=== PATIENT | female | born 1990 | race Hispanic/Latino ===

== ENCOUNTER 2016-06-06 11:18 | Emergency (ER) | payer OTHER ==
[~2016-06-06] VITALS: Ht 167.6 cm; Wt 72.6 kg
[~2016-06-06 11:18] MED LIST: OMEP20CA12 PO
[2016-06-06 11:47] LABS: BILIRUBIN,URINE NEGATIVE (NEGATIVE); KETONES,URINE NEGATIVE (NEGATIVE); LEUKOCYTE ESTERASE ,URINE 1+ (NEGATIVE); NITRITE,URINE NEGATIVE (NEGATIVE); PH,URINE 8 (5-9); PROTEIN,URINE NEGATIVE (NEGATIVE); UROBILINOGEN,URINE NORMAL (NORMAL)
--- NOTE | 2016-06-06 11:54 | ED Back Pain ---
General Chief Complaint: General Problems/Pain Stated Complaint: BACK PAIN Nursing Triage Note: Patient reports R sided back pain starting yesterday, denies n/v/d. denies injury and urinary symptoms Nursing Sepsis Screen: No Definite Risk Source of Information: Patient (DOES NOT SPEAK [place]), Chronic Disease Manager Exam Limitations: Language Barrier History of Present Illness Time Seen by Provider: 11:44 Initial Comments C/O RIGHT FLANK AND LOWER BACK PAIN SINCE TUESDAY NIGHT 06/04/16 NOTHING WORSENS OR IMPROVES PAIN NO RADIATION OF PAIN NO INJURY NO PARESTHESIAS OR MOTOR DEFICITS NO URINARY SYMPTOMS NO FEVER NO NAUSEA/VOMITING NO ABDOMINAL PAIN NO PRIOR HISTORY OF SIMILAR LMP 05/05/16--HAS IMPLANON/NEXPLANON IN PLACE Allergies and Home Medications Allergies Coded Allergies: No Known Drug Allergies (Unverified , 02/18/16) Home Medications Ketorolac Tromethamine 10 Mg Tablet, 10 MG PO Q6H, #15 Prescribed by: GABRIELA GRIFFIN on 06/06/16 1201 Nitrofurantoin Monohyd/M-Cryst 100 Mg Capsule, 100 MG PO BID, #20 Prescribed by: GABRIELA GRIFFIN on 06/06/16 1201 Constitutional: no symptoms reported Respiratory: no symptoms reported Cardiovascular: no symptoms reported Gastrointestinal: no symptoms reported Genitourinary: no symptoms reported : No LMP: May 05, 2016 Control/STD Prophylaxis: Other (IMPLANON/NEXPLANON) Musculoskeletal: see HPI, back pain Skin: no symptoms reported Psychiatric/Neurological: No Symptoms Reported Past Hbwkljs-Ldgcfp-Umhkyr Hx Patient Social History Alcohol Use: Denies Use Recreational Drug Use: No Smoking Status: Never a Smoker Recent Foreign Travel: No Contact w/Someone Who Travel: No Recent Infectious Disease Expo: No Recent Hopitalizations: No Seasonal Allergies Seasonal Allergies: No Surgeries HX Surgeries: Yes Surgeries: Section Respiratory Hx Respiratory Disorders: No Cardiovascular Hx Cardiac Disorders: No Neurological Hx Neurological Disorders: No Reproductive System : No Hx Reproductive Disorders: No Female Reproductive Disorders: Denies Genitourinary Hx Genitourinary Disorders: No Gastrointestinal Hx Gastrointestinal Disorders: No Musculoskeletal Hx Musculoskeletal Disorders: No Endocrine Hx Endocrine Disorders: No HEENT HX ENT Disorders: No Cancer Hx Cancer: No Psychosocial Hx Psychiatric Problems: No Integumentary HX Skin/Integumentary Disorder: No Blood Transfusions Hx Blood Disorders: No Family Medical History Significant Family History: Heart Disease, Diabetes Physical Exam Vital Signs Vital Sign - Last 12Hours 06/06/16 11:31 Temp 98.2 Pulse 71 Resp 18 B/P (MAP) 124/81 Pulse Ox 98 Capillary Refill : Less Than 3 Seconds General Appearance: WD/WN, Other (LOOKS UNCOMFORTABLE) Neck: Normal Inspection Cardiovascular: Regular Rate, Rhythm, No Edema, No JVD, No Murmur, Normal Peripheral Pulses Respiratory: Normal Breath Sounds, No Accessory Muscle Use, No Respiratory Distress Gastrointestinal: Normal Bowel Sounds, No Organomegaly, No Pulsatile Mass, Non Tender, Soft Back: No Vertebral Tenderness, CVA Tenderness (R), Other (MILD LOWER BACK TENDERNESS AND RIGHT FLANK TENDERNESS) Extremity: Normal Range of Motion Neurologic/Psychiatric: Alert, Oriented x3, No Motor/Sensory Deficits, roller man II- XII Norm as Tested Skin: Normal Color, Warm/Dry, No Rash Progress/Results/Core Measures Results/Orders Lab Results Laboratory Tests Test 06/06/16 11:40 Range/Units Urine Color YELLOW Urine Clarity SLIGHTLY CLOUDY Urine pH 8 5-9 Urine Specific [place] 1.015 L 1.016-1.022 Urine Protein NEGATIVE NEGATIVE Urine Glucose (UA) NEGATIVE NEGATIVE Urine Ketones NEGATIVE NEGATIVE Urine Nitrite NEGATIVE NEGATIVE Urine Bilirubin NEGATIVE NEGATIVE Urine Urobilinogen NORMAL NORMAL MG/DL Urine Leukocyte Esterase 1+ H NEGATIVE Urine RBC (Auto) NEGATIVE NEGATIVE Urine RBC NONE /HPF Urine WBC 0-2 /HPF Urine Squamous Epithelial Cells 5-10 /HPF Urine Crystals NONE /LPF Urine Amorphous Sediment FEW MARYANN PHOSPHATE H /LPF Urine Bacteria FEW H /HPF Urine Casts NONE /LPF Urine Mucus NEGATIVE /LPF Urine Culture Indicated NO My Orders Orders - GABRIELA GRIFFIN DO Ketorolac Injection (Toradol Injection) (06/06/16 11:59) Ceftriaxone Injection (Rocephin Injectio (06/06/16 12:00) Lidocaine 1% Injection (Xylocaine 1% Inj (06/06/16 12:00) Urine Culture (06/06/16 12:02) Medications Given in ED Current Medications Medications Dose Ordered Sig/Korey Route Start Time Stop Time Status Last Admin Dose Admin Ceftriaxone Sodium 1,000 mg ONCE ONCE IM 06/06/16 12:00 06/06/16 12:01 DC 06/06/16 12:14 1,000 MG Lidocaine HCl 2.1 ml ONCE ONCE INJ 06/06/16 12:00 06/06/16 12:01 DC 06/06/16 12:14 2.1 ML Vital Signs/I&O Vital Sign - Last 12Hours 06/06/16 11:31 Temp 98.2 Pulse 71 Resp 18 B/P (MAP) 124/81 Pulse Ox 98 Blood Pressure Mean: 95 Point of Care Testing Urine -Bedside: Negative Departure Impression Impression: Primary Impression: Urinary tract infection Disposition: HOME, SELF-CARE Condition: Stable Departure-Patient Inst. Referrals: NO,LOCAL PHYSICIAN (PCP/Family) Primary Care Physician Patient Instructions: Urinary Tract Infection, Adult (DC) Add. Discharge Instructions: MOIST HEAT TO AREA AT 20 MINUTE INTERVALS ACTIVITIES TOLERATED FOLLOW UP WITH DREdy OF CHOICE IN 2-3 DAYS IF NO BETTER All discharge instructions reviewed with patient and/or family. Voiced understanding. Scripts Ketorolac Tromethamine (Ketorolac Tromethamine) 10 Mg Tablet 10 MG PO Q6H for Pain, #15 TAB Prov: GABRIELA GRIFFIN DO 06/06/16 Nitrofurantoin Monohyd/M-Cryst (Macrobid 100 mg Capsule) 100 Mg Capsule 100 MG PO BID, #20 CAP Prov: GABRIELA GRIFFIN DO 06/06/16 GABRIELA GRIFFIN DO Jun 06, 2016 11:54
[2016-06-06 11:55] LABS: WBC,URINE 0-2 /HPF
[2016-06-06] MEDS ORDERED: KETOROLAC 60 MG/2 ML VIAL IM STA (11:59)
[2016-06-06] MEDS ORDERED: cefTRIAXone 1 GM (ROCEPHIN) VIAL IM ONE (12:00)
[2016-06-06] MEDS ORDERED: LIDOCAINE 1% INJ 20 ML (XYLOCAINE) VIAL INJ ONE (12:00)
[2016-06-06] MEDS ORDERED: NITR-65 PO (12:01)
[2016-06-06] MEDS ORDERED: KETO10TA PO (12:01)
[2016-06-06 12:36] VITALS: BP 132/64
== END 2016-06-06 12:35 | disposition home or self-care (01) ==
LOC: EDUNIT# 11:18 → ER 11:19
DX: N39.0 Urinary tract infection, site not specified (principal); M54.5 Low back pain
CPT/HCPCS: 81000; 84703; 87088; 96372; 99282

== ENCOUNTER 2018-03-07 07:00 | Emergency (ER) | payer OTHER ==
[~2018-03-07] VITALS: Ht 157.5 cm; Wt 83.0 kg
[~2018-03-07 07:00] MED LIST changes: +KETO10TA PO; +NITR-65 PO
--- NOTE | 2018-03-07 07:45 | NUR ---
Pt c/o pain to her neck and back of head adn N/V . No known injury. Pt recently had + test. No PMH, NKDA, no meds. Vitals are 115/70, 70p, 16R, 100%, 98.2.
[2018-03-07] MEDS ORDERED: PROMETHAZINE INJ 25 MG/ML (PHENERGAN) AMP IVP ONE (09:45)
[2018-03-07] MEDS ORDERED: NS IV 1000 ML 1,000 ML IV ONE (09:45)
[2018-03-07] MEDS ORDERED: ACETAMINOPHEN 500 MG TAB (TYLENOL) PO ONE (09:45)
[2018-03-07 09:59] LABS: BASOPHILS % (AUTO) 0 % (0-10); EOSINOPHILS # (AUTO) 0.1 10^3/uL (0.0-0.3); EOSINOPHILS % (AUTO) 1 % (0-10); HEMATOCRIT 39 % (35-52); HEMOGLOBIN 13.1 G/DL (11.5-16.0); LYMPHOCYTES # (AUTO) 2.1 X 10^3 (1.0-4.0); LYMPHOCYTES % (AUTO) 26 % (12-44); MEAN CORPUSCULAR HEMOGLOBIN 31 PG (25-34); MEAN CORPUSCULAR HGB CONC 34 G/DL (32-36); MEAN CORPUSCULAR VOLUME 90 FL (80-99); MEAN PLATELET VOLUME 10.6 FL (7.4-10.4); MONOCYTES # (AUTO) 0.4 X 10^3 (0.0-1.0); MONOCYTES % (AUTO) 5 % (0-12); NEUTROPHILS # (AUTO) 5.4 X 10^3 (1.8-7.8); NEUTROPHILS % (AUTO) 68 % (42-75); PLATELET COUNT 248 10^3/uL (130-400); RED CELL DISTRIBUTION WIDTH 12.2 % (10.0-14.5)
[2018-03-07 10:06] LABS: BILIRUBIN,URINE NEGATIVE (NEGATIVE); CLARITY,URINE CLEAR; COLOR,URINE YELLOW; GLUCOSE, URINE (UA) NEGATIVE (NEGATIVE); KETONES,URINE NEGATIVE (NEGATIVE); LEUKOCYTE ESTERASE ,URINE 3+ (NEGATIVE); NITRITE,URINE NEGATIVE (NEGATIVE); PH,URINE 6 (5-9); PROTEIN,URINE NEGATIVE (NEGATIVE); UROBILINOGEN,URINE NORMAL (NORMAL)
[2018-03-07 10:14] LABS: BACTERIA,URINE LARGE /HPF
[2018-03-07 10:21] LABS: ALANINE AMINOTRANSFERASE 18 U/L (0-55); ALBUMIN 4.1 GM/DL (3.2-4.5); ALKALINE PHOSPHATASE 73 U/L (40-136); BILIRUBIN,TOTAL 0.2 MG/DL (0.1-1.0); BUN/CREATININE RATIO 12; CALCIUM 9.1 MG/DL (8.5-10.1); CARBON DIOXIDE 21 MMOL/L (21-32); CHLORIDE 105 MMOL/L (98-107); GFR ESTIMATED > 60; GLUCOSE 94 MG/DL (70-105); POTASSIUM 3.9 MMOL/L (3.6-5.0); SODIUM 135 MMOL/L (135-145); TOTAL PROTEIN 7.1 GM/DL (6.4-8.2)
[2018-03-07] MEDS ORDERED: CEFD300C3 PO (12:12)
--- NOTE | 2018-03-07 12:12 | ED Headache ---
General Chief Complaint: Head/Cervical Problems Stated Complaint: NECK & BACK PAIN Nursing Triage Note: pt presents to ed with complaints of GODINEZ, N/V, AND L SHOULDER PAIN SICNE TUESDAY. REPORTS SHE THINKS SHE IS APROX 4 MONTHS PREG BUT HAS NOT SEEN AN OB YET. Nursing Sepsis Screen: No Definite Risk Source: patient, family Exam Limitations: language barrier (Kyrgyz as a second language used the language line.) History of Present Illness Date Seen by Provider: Mar 07, 2018 Time Seen by Provider: 11:52 Initial Comments Patient presents to ER by private conveyance with chief complaint of headache mild nausea no vomiting no fevers or chills times one day. She found out yesterday she is . She was using a Profen for headache and worked very well. She's not had anything today. She is having no rash, cough, shortness of breath, chest pain, abdominal pain. She has plans to follow-up with [facility] for her OB care. She denies any vaginal bleeding or discharge. No dysuria. Allergies and Home Medications Allergies Coded Allergies: No Known Drug Allergies (Unverified , 02/18/16) Home Medications Cefdinir 300 Mg Capsule, 300 MG PO BID Prescribed by: VERO JOHNSON on 03/07/18 1212 Ketorolac Tromethamine 10 Mg Tablet, 10 MG PO Q6H Prescribed by: GABRIELA GRIFFIN on 06/06/16 1201 Nitrofurantoin Monohyd/M-Cryst 100 Mg Capsule, 100 MG PO BID Prescribed by: GABRIELA GRIFFIN on 06/06/16 1201 Patient Home Medication List Home Medication List Reviewed: Yes Review of Systems Review of Systems Constitutional: No chills, No diaphoresis Eyes: Denies Blindness, Denies Blurred Vision Ears, Nose, Mouth, Throat: denies ear pain, denies ear discharge Respiratory: No cough, No short of breath Cardiovascular: No chest pain, No edema Gastrointestinal: No abdominal pain; nausea; No vomiting Genitourinary: No discharge, No dysuria : Yes Musculoskeletal: No back pain, No joint pain Past Isvivsm-Zjajds-Dttjbf Hx Patient Social History Alcohol Use: Denies Use Recreational Drug Use: No Smoking Status: Never a Smoker Recent Foreign Travel: No Contact w/Someone Who Travel: No Recent Infectious Disease Expo: No Recent Hopitalizations: No Physical Abuse: No Sexual Abuse: No Mistreated: No Fear: No Seasonal Allergies Seasonal Allergies: No Past Medical History Surgeries: Yes Section Respiratory: No Cardiac: No Neurological: No Reproductive Disorders: No Female Reproductive Disorders: Denies Gastrointestinal: No Musculoskeletal: No Endocrine: No Cancer: No Psychosocial: No Integumentary: No Blood Disorders: No Family Medical History Heart Disease, Diabetes Physical Exam Vital Signs Vital Signs - First Documented 03/07/18 03/07/18 08:54 12:29 Temp 98.2 Pulse 70 Resp 18 B/P (MAP) 121/72 (88) Pulse Ox 96 O2 Delivery Room Air Capillary Refill : Less Than 3 Seconds Height, Weight, BMI Height: 5'2.00" Weight: 183lbs. oz. 83.219080qf; BMI Method:Stated General Appearance: WD/WN, no apparent distress HEENT: PERRL/EOMI, normal ENT inspection, TMs normal, pharynx normal Neck: non-tender, full range of motion, supple, normal inspection Cardiovascular: normal peripheral pulses, regular rate, rhythm, no edema, no murmur Respiratory: chest non-tender, lungs clear, normal breath sounds, no respiratory distress, no accessory muscle use Gastrointestinal: normal bowel sounds, non tender, soft Psychiatric: alert, oriented x 3 Crainal Nerves: normal hearing, normal speech, PERRL Coordination/Gait: normal gait Skin: normal color, warm/dry Progress/Results/Core Measures Results/Orders Lab Results Laboratory Tests Test 03/07/18 06:55 03/07/18 10:00 Range/Units White Blood Count 8.0 4.3-11.0 10^3/uL Red Blood Count 4.30 L 4.35-5.85 10^6/uL Hemoglobin 13.1 11.5-16.0 G/DL Hematocrit 39 35-52 % Mean Corpuscular Volume 90 80-99 FL Mean Corpuscular Hemoglobin 31 25-34 PG Mean Corpuscular Hemoglobin Concent 34 32-36 G/DL Red Cell Distribution Width 12.2 10.0-14.5 % Platelet Count 248 130-400 10^3/uL Mean Platelet Volume 10.6 H 7.4-10.4 FL Neutrophils (%) (Auto) 68 42-75 % Lymphocytes (%) (Auto) 26 12-44 % Monocytes (%) (Auto) 5 0-12 % Eosinophils (%) (Auto) 1 0-10 % Basophils (%) (Auto) 0 0-10 % Neutrophils # (Auto) 5.4 1.8-7.8 X 10^3 Lymphocytes # (Auto) 2.1 1.0-4.0 X 10^3 Monocytes # (Auto) 0.4 0.0-1.0 X 10^3 Eosinophils # (Auto) 0.1 0.0-0.3 10^3/uL Basophils # (Auto) 0.0 0.0-0.1 10^3/uL Sodium Level 135 135-145 MMOL/L Potassium Level 3.9 3.6-5.0 MMOL/L Chloride Level 105 98-107 MMOL/L Carbon Dioxide Level 21 21-32 MMOL/L Anion Gap 9 5-14 MMOL/L Blood Urea Nitrogen 7 7-18 MG/DL Creatinine 0.60 0.60-1.30 MG/DL Estimat Glomerular Filtration Rate > 60 BUN/Creatinine Ratio 12 Glucose Level 94 70-105 MG/DL Calcium Level 9.1 8.5-10.1 MG/DL Corrected Calcium 9.0 8.5-10.1 MG/DL Total Bilirubin 0.2 0.1-1.0 MG/DL Aspartate Amino Transf (AST/SGOT) 16 5-34 U/L Alanine Aminotransferase (ALT/SGPT) 18 0-55 U/L Alkaline Phosphatase 73 40-136 U/L Total Protein 7.1 6.4-8.2 GM/DL Albumin 4.1 3.2-4.5 GM/DL Human Chorionic Gonadotropin, Quant 28118 H <5 MIU/ML Urine Color YELLOW Urine Clarity CLEAR Urine pH 6 5-9 Urine Specific [place] 1.015 L 1.016-1.022 Urine Protein NEGATIVE NEGATIVE Urine Glucose (UA) NEGATIVE NEGATIVE Urine Ketones NEGATIVE NEGATIVE Urine Nitrite NEGATIVE NEGATIVE Urine Bilirubin NEGATIVE NEGATIVE Urine Urobilinogen NORMAL NORMAL MG/DL Urine Leukocyte Esterase 3+ H NEGATIVE Urine RBC (Auto) NEGATIVE NEGATIVE Urine RBC NONE /HPF Urine WBC 10-25 H /HPF Urine Squamous Epithelial Cells 5-10 /HPF Urine Crystals NONE /LPF Urine Bacteria LARGE H /HPF Urine Casts NONE /LPF Urine Mucus NEGATIVE /LPF Urine Culture Indicated YES My Orders Orders - VERO JOHNSON Promethazine Injection (Phenergan Injec (03/07/18 09:45) Ns Iv 1000 Ml (Sodium Chloride 0.9%) (03/07/18 09:45) Acetaminophen Tablet (Tylenol Tablet) (03/07/18 09:45) Iv Heplock-Insert (Order) (03/07/18 09:39) Cbc With Automated Diff (03/07/18 09:39) Comprehensive Metabolic Panel (03/07/18 09:39) Urinalysis (03/07/18 09:39) Hcg,Quantitative (03/07/18 09:39) Urine Culture (03/07/18 10:00) Medications Given in ED Current Medications Medications Dose Ordered Sig/Korey Route Start Time Stop Time Status Last Admin Dose Admin Acetaminophen 1,000 mg ONCE ONCE PO 03/07/18 09:45 03/07/18 09:46 DC 03/07/18 09:56 1,000 MG Promethazine HCl 25 mg ONCE ONCE IVP 03/07/18 09:45 03/07/18 09:46 DC 03/07/18 09:56 25 MG Sodium Chloride 1,000 ml @ 100 mls/hr Q10H ONCE IV 03/07/18 09:45 03/07/18 12:28 DC 03/07/18 09:56 100 MLS/HR Vital Signs/I&O 03/07/18 03/07/18 08:54 12:29 Temp 98.2 98.2 Pulse 70 70 Resp 18 18 B/P (MAP) 121/72 (88) 121/70 (87) Pulse Ox 96 96 O2 Delivery Room Air Blood Pressure Mean: 88 Progress Progress Note : Time: 18:56 Progress Note After some fluids and Tylenol patient's labs looked okay we will let her go home. She has no urinary symptoms so were going to send some cefdinir which would help for her possible sinus infection/strep throat as well as cover for urinary tract infection. Departure Impression Primary Impression: Headache Qualified Codes: G44.209 - Tension-type headache, unspecified, not intractable Additional Impressions: UTI (urinary tract infection) Qualified Codes: N30.00 - Acute cystitis without hematuria Pharyngitis Qualified Codes: J02.9 - Acute pharyngitis, unspecified Disposition: 01 HOME, SELF-CARE Condition: Improved Departure-Patient Inst. Decision time for Depature: 12:11 Referrals: NO,LOCAL PHYSICIAN (PCP/Family) Primary Care Physician Patient Instructions: Headache, Adult (DC) Add. Discharge Instructions: Drink plenty fluids and sampler pickup the antibiotics start taking one capsule twice a day for the next week. Follow-up with OB care. Use Tylenol 1000 g every 8 hours as needed for headache. Do not use ibuprofen or other NSAIDs such as Aleve, Naprosyn etc. All discharge instructions reviewed with patient and/or family. Voiced understanding. Scripts Cefdinir (Cefdinir) 300 Mg Capsule 300 MG PO BID for 7 Days, #14 CAP 0 Refills Prov: VERO JOHNSON 03/07/18 Work/School Note: Work Release Form Date Seen in the Emergency Department: Mar 07, 2018 Return to Work: Mar 09, 2018 Restrictions: No Restrictions VERO JOHNSON Mar 07, 2018 12:12
[2018-03-07 12:29] VITALS: BP 121/70
== END 2018-03-07 12:28 | disposition home or self-care (01) ==
LOC: EDUNIT# 07:00 → ER 07:01
DX: O26.899 Other specified pregnancy related conditions, unspecified trimester (principal); R51 Headache; O23.40 Unspecified infection of urinary tract in pregnancy, unspecified trimester; O99.519 Diseases of the respiratory system complicating pregnancy, unspecified trimester; J02.9 Acute pharyngitis, unspecified; Z98.890 Other specified postprocedural states; Z3A.00 Weeks of gestation of pregnancy not specified
CPT/HCPCS: 36415; 80053; 81000; 84702; 85025; 87077; 87088; 87186

== ENCOUNTER 2018-10-05 14:11 | Outpatient (CLI) | payer SELFPAY ==
[~2018-10-05] VITALS: Ht 149.9 cm; Wt 94.9 kg
[~2018-10-05 14:11] MED LIST changes: +CEFD300C3 PO; -OMEP20CA12 PO; +OMEP20CA13 PO
[2018-10-05] MEDS ORDERED: PREN-142 PO (14:33)
== END 2018-10-05 15:31 | disposition home or self-care (01) ==
LOC: MERGE 14:11 → PREOP 14:11
PROVIDERS: ATTEND Obstetrics & Gynecology
DX: Z01.818 Encounter for other preprocedural examination (principal)
CPT/HCPCS: 87081

== ENCOUNTER 2018-10-12 05:58 | Inpatient (IN) | payer OTHER | END 2018-10-14 12:55 | disposition home or self-care (01) | LOC: LDRP 05:58 ==

== ENCOUNTER 2019-12-14 05:38 | Outpatient (RCR) | payer SELFPAY ==
[~2019-12-14] VITALS: Ht 155.2 cm; Wt 94.3 kg
[~2019-12-14 05:38] MED LIST changes: +ACHD5005 PO; +DOCU100C37 PO; +IBUP-844 PO; -OMEP20CA13 PO; +OMEP20CA18 PO; +PREN-142 PO
[2019-12-18] MEDS ORDERED: IBUP-844 PO (07:20)
[2019-12-18] MEDS ORDERED: DCS100C PO (07:20)
[2019-12-18] MEDS ORDERED: ACHD5005 PO (07:20)
== END 2019-12-14 13:06 | disposition home or self-care (01) ==
LOC: PREOP 05:38
PROVIDERS: ATTEND Obstetrics & Gynecology
DX: Z01.818 Encounter for other preprocedural examination (principal); Z20.828 Contact with and (suspected) exposure to other viral communicable diseases
CPT/HCPCS: 87081; 87635

== ENCOUNTER 2019-12-18 06:03 | Inpatient (IN) | payer OTHER ==
[2019-12-18] VITALS (12 sets, daily range): BP systolic 111–126; BP diastolic 53–81
[~2019-12-18] VITALS: Ht 165.1 cm; Wt 95.5 kg
[~2019-12-18 06:03] MED LIST changes: +CITRIC ACID/SOB CIT (BICITRA) 30 ML UDC ONE; +FAMOTIDINE 20MG/2ML IV (PEPCID) ONE; +METOCLOPRAMIDE INJ 10 MG/2 ML (REGLAN) ONE; +ceFAZolin 2 GM IV Premixed 0 ML ONE
--- NOTE | 2019-12-18 06:05 | NUR ---
ALON HENAO presented to unit via ambulatory from ED, accompanied by s.o., with c/o PREVIOUS c/s. ALON HENAO weighed, gowned, voided, and to bed. EFHM and TOCO applied, VS taken. ALON HENAO oriented to bed controls, call light, TV, heat, and A/C controls.
[2019-12-18] MEDS ORDERED: LACTATED RINGERS 1,000 ML IV PRN ×2 (06:19)
[2019-12-18] MEDS ORDERED: ceFAZolin 2 GM IV Premixed 50 ML IV ONE (06:30)
[2019-12-18] MEDS ORDERED: CITRIC ACID/SOB CIT (BICITRA) 30 ML UDC PO ONE (06:30)
[2019-12-18] MEDS ORDERED: METOCLOPRAMIDE INJ 10 MG/2 ML (REGLAN) IV ONE (06:30)
[2019-12-18] MEDS ORDERED: CATHETER FLUSH 10 ML SYR IV PRN (06:30)
[2019-12-18 06:56] LABS: BASOPHILS % (AUTO) 0 % (0-10); EOSINOPHILS % (AUTO) 0 % (0-10); HEMATOCRIT 32 % (35-52); HEMOGLOBIN 10.4 g/dL (11.5-16.0); LYMPHOCYTES # (AUTO) 2.6 10^3/uL (1.0-4.0); LYMPHOCYTES % (AUTO) 26 % (12-44); MEAN CORPUSCULAR HEMOGLOBIN 26 pg (25-34); MEAN CORPUSCULAR HGB CONC 32 g/dL (32-36); MEAN CORPUSCULAR VOLUME 82 fL (80-99); MEAN PLATELET VOLUME 11.4 fL (9.0-12.2); MONOCYTES # (AUTO) 0.6 10^3/uL (0.0-1.0); MONOCYTES % (AUTO) 6 % (0-12); NEUTROPHILS # (AUTO) 6.6 10^3/uL (1.8-7.8); NEUTROPHILS % (AUTO) 66 % (42-75); PLATELET COUNT 291 10^3/uL (130-400); WHITE BLOOD COUNT 9.9 10^3/uL (4.3-11.0)
[2019-12-18] MEDS ORDERED: fentaNYL INJECTION 100 MCG/2 ML AMP ONE (07:06)
[2019-12-18] MEDS ORDERED: OXYTOCIN PRE-MIX DRIP 500 ML IV ONE ×2 (07:06→08:25)
--- NOTE | 2019-12-18 07:09 | History & Physical-OB ---
OB - Chief Complaint & HPI Date/Time Date of Admission: Date of Admission: Dec 18, 2019 at 06:03 Date seen by a Provider: Dec 18, 2019 Time Seen by a Provider: 07:05 Chief Complaint/History OB-Reason for Admission/Chief: Section Hx : 3 Hx Para: 2 Expected Date of Delivery: Dec 24, 2019 Gestational Age in Weeks: 39 Gestational Age in Days: 1 Indication for : desires repeat Admission Nurse Assessment Rev: Yes Allergies and Home Medications Allergies Coded Allergies: No Known Drug Allergies (Unverified , 02/18/16) Home Medications Vit No.124/Iron/FA 1 Each Tablet, 1 EACH PO DAILY, (Reported) Patient Home Medication List Home Medication List Reviewed: Yes OB - History Hx of Present Care: Yes Ultrasounds: Normal mid trimester US Obstetrical Complications: None Medical Complications: None Delivery History Hx Blood Disorders: No Adverse Rxn to Tranfusion: No (N/A) Patient Past Medical History n/a Social History/Family History HIV/AIDS: No Sexually Transmitted Disease: No Immunizations Hepatitis A: Yes Hepatitis B: Yes Date of Influenza Vaccine: Nov 22, 2019 OB - Admission Exam Physical Exam HEENT: NCAT Heart: Rhythm Normal Lungs: Clear Abdomen: Gravid Extremities: Normal Reflexes: Normal Heart Rate: 130's Accelerations: Accelerations Present Decelerations: No Decelerations Short Term Variability: Present Lather Apprentice Variability: Average (6-25) Contractions on Admission: >10 Minutes Apart Intensity: Mild Labs Laboratory Tests Test 12/18/19 06:35 Range/Units White Blood Count 9.9 4.3-11.0 10^3/uL Red Blood Count 3.95 3.80-5.11 10^6/uL Hemoglobin 10.4 L 11.5-16.0 g/dL Hematocrit 32 L 35-52 % Mean Corpuscular Volume 82 80-99 fL Mean Corpuscular Hemoglobin 26 25-34 pg Mean Corpuscular Hemoglobin Concent 32 32-36 g/dL Red Cell Distribution Width 14.4 10.0-14.5 % Platelet Count 291 130-400 10^3/uL Mean Platelet Volume 11.4 9.0-12.2 fL Immature Granulocyte % (Auto) 1 % Neutrophils (%) (Auto) 66 42-75 % Lymphocytes (%) (Auto) 26 12-44 % Monocytes (%) (Auto) 6 0-12 % Eosinophils (%) (Auto) 0 0-10 % Basophils (%) (Auto) 0 0-10 % Neutrophils # (Auto) 6.6 1.8-7.8 10^3/uL Lymphocytes # (Auto) 2.6 1.0-4.0 10^3/uL Monocytes # (Auto) 0.6 0.0-1.0 10^3/uL Eosinophils # (Auto) 0.0 0.0-0.3 10^3/uL Basophils # (Auto) 0.0 0.0-0.1 10^3/uL Immature Granulocyte # (Auto) 0.1 0.0-0.1 10^3/uL OB - Assessment/Plan/Diagnosis Assessment Assessment: section Admission Dx 29 yo @ 39 week Previous x 2 Admission Status: Inpatient Order (span 2 midnights) Reason for Inpatient Admission: Repeat section Plan Plan: Section RAJ PORTILLO DO Dec 18, 2019 07:09
[2019-12-18] MEDS ORDERED: TETANUS,DIPTH,PERTUSS P/F (BOOSTRIX) 0.5 ML VIAL IM SCH (07:15)
[2019-12-18] MEDS ORDERED: ONDANSETRON 4 MG/2 ML (SDV) Z0FRAN IVP PRN ×2 (07:15→09:15)
[2019-12-18] MEDS ORDERED: FAMOTIDINE 20MG/2ML IV (PEPCID) IVP ONE (07:15)
[2019-12-18] MEDS ORDERED: MEASLES,MUMPS,RUBELLA 1 EA INJ SC SCH (07:15)
[2019-12-18] MEDS ORDERED: DCS100C PO (07:20)
[2019-12-18] MEDS ORDERED: IBUP-844 PO (07:20)
[2019-12-18] MEDS ORDERED: ACHD5005 PO (07:20)
--- NOTE | 2019-12-18 07:21 | Discharge Inst-Women's Service ---
Discharge Inst-Women's Serv Depart Medication/Instructions New, Converted or Re-Newed RX: RX on Chart Final Diagnosis POD 2 RLTCS Problems Reviewed?: Yes Consults/Follow Up Additional Follow Up: Yes Orders/Referrals Dr. Nieto in 7-[address] Jalloh in 6 weeks Activity Activity: Activity as Tolerated Driving Instructions: No Driving for 1 Week NO SMOKING: NO SMOKING Nothing Inside Vagina: No Douching, No [place], No Tampons Diet Discharge Diet: No Restrictions Symptoms to Report to : Bleeding Excessive, Pain Increased, Fever Over 101 Degrees F, Vaginal Bleeding Increase, Questions/Concerns For Any Problems or Questions: Contact Your Physician Skin/Wound Care Infection Signs and Symptoms: Increased Redness, Foul Odor of Wound, Increased Drainage, Skin Itchy or Has a Rash, Increased Swelling, Temperature Above 101 F Operative Area Clean and Dry: Keep Incision Clean/Dry Stitches/Island/Dermabond: Dermabond, Care of Stitches Bathing Instructions: RAJ Burks DO Dec 18, 2019 07:21
[2019-12-18] MEDS ORDERED: ceFAZolin 2 GM IV Premixed 50 ML ONE (07:48)
[2019-12-18] MEDS ORDERED: ATROPINE INJ 0.4 MG/ML SDV ONE (08:10)
[2019-12-18] MEDS ORDERED: PHENYLEPHRINE 100 MCG/ML 10 ML (ANESTHESIA) SYR ONE (08:10)
[2019-12-18] MEDS ORDERED: ROPIVACAINE 5MG/ML 30ML VIAL ONE (08:34)
[2019-12-18] MEDS ORDERED: HYDROmorphone 2 MG/ML VIAL (DILAUDID) IV ONE (09:15)
--- NOTE | 2019-12-18 09:50 | NUR ---
TRANSFERRED TO PP ROOM 306 VIA PT BED FROM OB PAR ACC BY DENNIS TA VENEER TAPING MACHINE OFFBEARER AFTER A REPEAT SECTION TODAY BY DR. PORTILLO. VSS. A/O X4. SPEAKS LITTLE UZBEK BUT S.O. SPEAKS FAIRLY WELL. ABD DRSRicardo D/I. ABD SOFT. FF U/1. VAG FLOW LT/MOD RUBRA. IV PLACED ON PUMP. CALF SCDS ON BILATERALLY. S.O. AT BEDSIDE. SIDE RAILS UP X4. CALL LIGHT PLACED WITHIN REACH.
--- NOTE | 2019-12-18 10:30 | NUR ---
PERICARE WITH PAD CHANGE. VAG FLOW LT/MOD RUBRA. FF U/1.
[2019-12-18] MEDS: OXYTOCIN PRE-MIX DRIP 500 ML IV SCH (10:32)
[2019-12-18] MEDS: KETOROLAC 30 MG/ML VIAL IV SCH ×3 (10:38→23:38)
--- NOTE | 2019-12-18 12:45 | NUR ---
VSS. TAKING FLUIDS WELL. CARING FOR INFANT IN ROOM. GOOD INTERACTION NOTED.
--- NOTE | 2019-12-18 12:58 | OPERATIVE REPORT ---
DATE OF SERVICE: 12/18/2019 PREOPERATIVE DIAGNOSES: 1. A 29-year-old G3, P2 at 39 weeks' gestation. 2. Previous section x2. POSTOPERATIVE DIAGNOSES: 1. A 29-year-old G3, P2 at 39 weeks' gestation. 2. Previous section x2. PROCEDURE PERFORMED: Repeat low transverse section. SURGEON: Alvaro Portillo DO. ASSOCIATE DEAN: Dr. Killian Jalloh MD, who was necessary for manipulation and retraction throughout the procedure. ANESTHESIA: Spinal. ESTIMATED BLOOD LOSS: 500 mL. URINE OUTPUT: 45 mL clear at the end of the procedure. FLUIDS: 1600 mL lactated Ringer's solution. FINDINGS: A live male weighing 8 pounds 9 ounces, Apgars of 8 and 9. Grossly normal appearing uterus, bilateral fallopian tubes and ovaries. SPECIMEN SENT: Placenta. INDICATIONS FOR PROCEDURE: This 29-year-old female is a patient, who had sought care with Dr. Jalloh at the [facility]. Her care was uncomplicated with the exception of needing a repeat with two prior cesareans being performed. She was consulted in my office, where the risks of procedure were reviewed with the patient in detail. After all of her questions were answered in the preoperative area, consent was obtained and the patient was taken to the operating room. OPERATIVE REPORT IN DETAIL: Once in the operating room, spinal analgesia was found to be adequate. She was placed in a supine position with leftward tilt, prepped and draped in a normal sterile fashion. A timeout was performed and anesthesia was tested. I then made a Pfannenstiel skin incision through the previously existing scar using knife and carried it down to the underlying fascia using Bovie cautery. The fascial incision was extended laterally using Bovie cautery. The superior aspect of fascial incision was then grasped with Jake clamps, tented up and dissected off the underlying rectus muscles. The inferior aspect of the fascial incision was then grasped with Jake clamps, tented up and dissected off the underlying rectus muscle. Rectus muscle was then dissected down the midline using Olsen scissors, which exposed the peritoneum, which I entered using blunt dissection and extended using blunt traction. An Cr ring retractor was placed in the peritoneal incision, which offers excellent lateral sidewall retraction. I then identified the lower uterine segment, which was found to be thinned out. I made a low transverse incision to the vesicouterine peritoneum and bluntly dissected off the lower uterine segment. I proceeded with myotomy until membranes were visualized, at which point, I extended the uterine incision laterally and superiorly using bandage scissors. Amniotomy was performed. In the process of doing this, clear fluid was noted. The infant was found in a vertex presentation. With gentle fundal pressure, the infant's head elevated up to the incision, where it was delivered through the incision. The nares and oropharynx were bulb suctioned. Anterior and posterior shoulders were delivered. The infant was then brought to the operative field, where the cord was doubly clamped and cut and infant handed off to Dr. Jalloh, who was present for delivery. Cord blood was collected, 3-vessel cord with intact placenta was delivered spontaneously thereafter. IV Pitocin was initiated to facilitate uterine contraction. Uterine fundus became firmer with bimanual massage. Uterus was then exteriorized and cleared of all endometrial clots and debris. I then proceeded with closing the uterine incision using 0 Vicryl suture in a running locked fashion. A second layer of imbricating 0 Monocryl was placed. Excellent hemostasis was noted after doing this. I then placed the uterus back in the pelvis and copiously irrigated the pelvis using normal saline. Once again, there was no active bleeding noted from any of my dissection planes. I placed Interceed antiadhesive over my low transverse incision. I removed the Cr ring retractor. I then proceeded with closing the peritoneum using 3-0 Vicryl suture in a running fashion. The rectus muscle was reapproximated using 3-0 Vicryl suture in an interrupted fashion. The fascia was reapproximated using 0 Vicryl suture in a running fashion. Subcutaneous tissue was reapproximated using 3-0 plain in an interrupted subcutaneous stitch. The skin was reapproximated using 4-0 Monocryl in a running subcuticular. Dermabond was applied to incision and sterile dressing with adhesive white tape. Two grams of Ancef given preoperatively for infection prophylaxis. Job ID: [id number] DocumentID: [id number] Dictated Date: 12/18/2019 08:31:27 Bilingual Recruiter Date: 12/18/2019 12:57:55 Dictated By: ALVARO PORTILLO DO
--- NOTE | 2019-12-18 13:00 | NUR ---
FF U/1. VAG FLOW LT/MOD RUBRA. PAD CHANGE. DENIES URGE TO VOID. SPOUSE INTERPRETS FOR PT.
[2019-12-18] MEDS: HYDROcodone/APAP 5 MG/325 MG (LORTAB) TAB PO PRN ×2 (13:55→20:59)
--- NOTE | 2019-12-18 13:55 | NUR ---
LORTAB 2 TABS P.O. FOR C/O ABD PAIN.
[2019-12-18] MEDS ORDERED: CATHETER FLUSH 10 ML SYR IV SCH (14:00)
--- NOTE | 2019-12-18 14:30 | NUR ---
UP TO THE BATHROOM WITH ASSISTANCE. VOIDED 100 CC URINE. PERICARE WITH PAD AND UNDERWEAR APPLIED. BEARS WEIGHT WELL. BACK TO BED WITHOUT PROBLEMS.
--- NOTE | 2019-12-18 18:15 | NUR ---
CONTINUES TO DO WELL. SPOUSE HAS TO GO HOME TO BE WITH OTHER CHILDREN TONIGHT. PT HAS VOIDED AGAIN WITHOUT PROBLEMS.
[2019-12-18] MEDS: DOCUSATE SODIUM 100 MG (COLACE) CAP PO SCH (20:59)
--- NOTE | 2019-12-18 21:05 | NUR ---
Nurse at pt bedside. Pt. complains of pain. Pain meds given at this time. Pt. helped up to bathroom. Voided 500 ml. Scant bleeding noted. Pt. back to bed. asleep in open air crib. Pt. tolerated well.
[2019-12-19 01:56] VITALS: BP 125/63
[2019-12-19 05:50] LABS: EOSINOPHILS % (AUTO) 0 % (0-10); HEMATOCRIT 26 % (35-52); HEMOGLOBIN 8.1 G/DL (11.5-16.0); LYMPHOCYTES % (AUTO) 26 % (12-44); MEAN CORPUSCULAR HEMOGLOBIN 26 PG (25-34); MEAN CORPUSCULAR HGB CONC 31 G/DL (32-36); MEAN CORPUSCULAR VOLUME 84 FL (80-99); MEAN PLATELET VOLUME 11.4 FL (7.4-10.4); MONOCYTES % (AUTO) 6 % (0-12); NEUTROPHILS % (AUTO) 66 % (42-75); PLATELET COUNT 241 10^3/uL (130-400); WHITE BLOOD COUNT 10.8 10^3/uL (4.3-11.0)
[2019-12-19 05:51] LABS: BASOPHILS % (AUTO) 0 % (0-10); LYMPHOCYTES # (AUTO) 2.8 X 10^3 (1.0-4.0); MONOCYTES # (AUTO) 0.7 X 10^3 (0.0-1.0); NEUTROPHILS # (AUTO) 7.2 X 10^3 (1.8-7.8)
[2019-12-19] MEDS: HYDROcodone/APAP 5 MG/325 MG (LORTAB) TAB PO PRN (06:00)
[2019-12-19] MEDS: KETOROLAC 30 MG/ML VIAL IV SCH (06:00)
--- NOTE | 2019-12-19 06:05 | NUR ---
Dressing and IV removed at this time. Pt. tolerated well. Incision is dry and intact. No drainage noted.
[2019-12-19 06:40] VITALS: BP 120/68
--- NOTE | 2019-12-19 07:56 | Anesthesia-Regional Post-Op ---
Regional Patient Condition Mental Status: Alert, Oriented x3 Circulation: Same as Pre-Op Headache: Absent Sensation: Full Recovery Motor Block: Absent Post Op Complications Complications None Follow Up Care/Instructions Patient Instructions None needed. Anesthesia/Patient Condition Patient is doing well, no complaints, stable vital signs, no apparent adverse anesthesia problems. No complications reported per nursing. YUMIKO ARZOLA CRNA Dec 19, 2019 07:56
--- NOTE | 2019-12-19 08:12 | Postpartum Progress Note ---
Note Note Day # 1 Subjective: Patient is without complaints. Ambulating, voiding. Tolerating a regular diet without nausea or vomiting. Normal lochia. Pain is well controlled with oral pain medications. Objective: Physical Exam: General - Alert and oriented, no apparent distress Abdomen - Soft, appropriately tender to palpation, non-distended, fundus firm at umbilicus Extremities - no edema, negative Sue's bilaterally Incision - c/d/i Assessment: POD 1 RLTCS Acute blood loss anemia Plan: Routine care. Encourage breast feeding. Encourage ambulation. Ferrous sulfate supplementation. Plan for discharge tomorrow Vitals - Labs Vital Signs - I&O Vital Signs Date Time Temp Pulse Resp B/P (MAP) Pulse Ox O2 Delivery O2 Flow Rate FiO2 12/19/19 06:40 36.4 85 18 120/68 (85) 100 Room Air 12/19/19 01:56 36.2 87 18 125/63 (83) 97 Room Air 12/18/19 21:00 37.0 87 18 119/71 (87) 100 Room Air 12/18/19 17:00 36.7 80 18 119/59 (79) 98 Room Air 12/18/19 12:45 36.5 78 18 116/59 (78) 99 Room Air 12/18/19 10:00 36.9 93 18 121/60 (80) 99 Room Air 12/18/19 09:50 Room Air 12/18/19 09:50 36.2 20 116/53 (74) 98 Room Air 12/18/19 09:45 Room Air 12/18/19 09:40 20 117/68 (84) 99 Room Air 12/18/19 09:30 20 111/69 (83) 98 Room Air 12/18/19 09:30 Room Air 12/18/19 09:20 20 115/66 (82) 98 Room Air 12/18/19 09:15 Room Air 12/18/19 09:10 20 120/81 (94) 98 Room Air 12/18/19 09:00 Room Air 12/18/19 09:00 20 114/57 (76) 98 Room Air 12/18/19 08:50 Room Air 12/18/19 08:50 36.2 20 118/75 (89) 99 Room Air I & O 12/19/19 07:00 Intake Total 2150 ml Output Total 2995 ml Balance -845 ml Labs Laboratory Tests 12/19/19 04:55: White Blood Count 10.8, Red Blood Count 3.11L, Hemoglobin 8.1L, Hematocrit 26L, Mean Corpuscular Volume 84, Mean Corpuscular Hemoglobin 26, Mean Corpuscular Hemoglobin Concent 31L, Red Cell Distribution Width 14.7H, Platelet Count 241, Mean Platelet Volume 11.4H, Immature Granulocyte % (Auto) 1, Neutrophils (%) (Auto) 66, Lymphocytes (%) (Auto) 26, Monocytes (%) (Auto) 6, Eosinophils (%) (Auto) 0, Basophils (%) (Auto) 0, Neutrophils # (Auto) 7.2, Lymphocytes # (Auto) 2.8, Monocytes # (Auto) 0.7, Eosinophils # (Auto) 0.0, Basophils # (Auto) 0.0, Immature Granulocyte # (Auto) 0.1 RAJ PORTILLO DO Dec 19, 2019 08:12
[2019-12-19 09:40] VITALS: BP 124/74
--- NOTE | 2019-12-19 09:40 | NUR ---
Shift assessment done. Using [employer] to communicate with patient. States has passed gas per bottom, no bm. States pain a 3 on pain scale. Heart murmur noted on auscultation. Encourage patient to ambulate outside of room today. Incision open to air. Dermabond in place. No drainage noted. Patient states voiding well, denies difficulty. Denies heavy vaginal bleeding or passing any blood clots. Fundus Firm u/1 Addendum: 12/19/19 at 1108 by JULIANNE CLARKE RN offered shower, requests later in day
--- NOTE | 2019-12-19 10:30 | NUR ---
Report received from Ayala Basurto RN
[2019-12-19] MEDS: OXYTOCIN PRE-MIX DRIP 500 ML IV SCH (11:04)
[2019-12-19 12:03] VITALS: BP 122/61
[2019-12-19] MEDS: IBUPROFEN 600 MG (MOTRIN) TAB PO SCH ×2 (12:08→18:37)
[2019-12-19] MEDS: DOCUSATE SODIUM 100 MG (COLACE) CAP PO SCH ×3 (12:08→21:04)
--- NOTE | 2019-12-19 14:41 | NUR ---
Ambulating in halls
--- NOTE | 2019-12-19 15:00 | NUR ---
REPORT RECEIVED FROM Alyssa RAMIREZ RN.
[2019-12-19 16:19] VITALS: BP 126/72
--- NOTE | 2019-12-19 16:19 | NUR ---
[employer] GIVEN TO PT FOR SHOWER. PT REQUEST RN TO TAKE INFANT TO NURSERY. NO FURTHER NEEDS AT THIS TIME.
--- NOTE | 2019-12-19 18:30 | NUR ---
EATING DINNER. CARING FOR IN ROOM.
[2019-12-19 21:04] VITALS: BP 120/72
[2019-12-20 03:13] VITALS: BP 126/79
[2019-12-20] MEDS: HYDROcodone/APAP 5 MG/325 MG (LORTAB) TAB PO PRN (03:13)
[2019-12-20] MEDS: IBUPROFEN 600 MG (MOTRIN) TAB PO SCH ×2 (03:13→08:27)
--- NOTE | 2019-12-20 08:00 | NUR ---
Dr Nieto here to see pt .
[2019-12-20 08:09] VITALS: BP 127/75
--- NOTE | 2019-12-20 08:10 | Postpartum Progress Note ---
Note Note Day # 2 Subjective: Patient is without complaints. Ambulating, voiding. Tolerating a regular diet without nausea or vomiting. Normal lochia. Pain is well controlled with oral pain medications. Objective: Physical Exam: General - Alert and oriented, no apparent distress Abdomen - Soft, appropriately tender to palpation, non-distended, fundus firm at umbilicus Extremities - no edema, negative Sue's bilaterally Incision- c/d/i Assessment: POD 2 RLTCS Acute blood loss anemia Plan: Routine care. Encourage breast feeding. Encourage ambulation. Ferrous sulfate supplementation. Plan for discharge today Vitals - Labs Vital Signs - I&O Vital Signs Date Time Temp Pulse Resp B/P (MAP) Pulse Ox O2 Delivery O2 Flow Rate FiO2 12/20/19 03:13 36.3 95 18 126/79 (95) 98 Room Air 12/19/19 21:04 36.3 84 18 120/72 (88) 98 Room Air 12/19/19 16:19 36.6 91 18 126/72 (90) 99 Room Air 12/19/19 12:03 36.5 78 18 122/61 (81) 98 Room Air 12/19/19 09:40 36.5 83 18 124/74 (91) 100 Room Air LINDSEYRAJ Hutton DO Dec 20, 2019 08:10
[2019-12-20] MEDS: DOCUSATE SODIUM 100 MG (COLACE) CAP PO SCH (08:26)
[2019-12-20 11:20] VITALS: BP 127/75
--- NOTE | 2019-12-20 11:30 | NUR ---
ALON HENAO demonstrates understanding of discharge instructions and accurately returns instructions upon questioning. Language line used sammarinese instructions. Copy of Post-Discharge Instructions and Medication Discharge Instructions given to patient. ALON HENAO is able to manage continuing needs after discharge. Patients belongings returned to patient. Skin dry and intact; no breakdown noted. Patient discharged from [facility] on 12/20/19 at 1130. ALON HENAO left floor via ambulation, accompanied by and women services staff. No concerns voiced at this time.
== END 2019-12-20 11:30 | disposition home or self-care (01) | DRG 787 ==
LOC: LDRP 06:03 → WS 09:50
PROVIDERS: ADMIT Obstetrics & Gynecology; ATTEND Obstetrics & Gynecology
PROC: 10D00Z1 Extraction of Products of Conception, Low, Open Approach (ICD-10-PCS; principal; 2019-12-18 07:35)
DX: O34.211 Maternal care for low transverse scar from previous cesarean delivery (principal); D62 Acute posthemorrhagic anemia; O90.81 Anemia of the puerperium; Z37.0 Single live birth; Z3A.39 39 weeks gestation of pregnancy; Z23 Encounter for immunization
CPT/HCPCS: 36415; 85025; 86850; 86900; 86901; 90707; 94664

== ENCOUNTER 2020-06-06 17:11 | Emergency (ER) | payer MEDICAID, OTHER ==
[~2020-06-06] VITALS: Ht 162.5 cm; Wt 86.1 kg
[~2020-06-06 17:11] MED LIST changes: -CITRIC ACID/SOB CIT (BICITRA) 30 ML UDC ONE; +DCS100C PO; -FAMOTIDINE 20MG/2ML IV (PEPCID) ONE; -METOCLOPRAMIDE INJ 10 MG/2 ML (REGLAN) ONE; -ceFAZolin 2 GM IV Premixed 0 ML ONE
[2020-06-06] MEDS ORDERED: METH-313 PO (17:28)
[2020-06-06] MEDS ORDERED: NAPR-1071 PO (17:28)
--- NOTE | 2020-06-06 17:29 | ED Back Pain ---
General Stated Complaint: LOWER BACK PAIN Source of Information: Patient Exam Limitations: No Limitations History of Present Illness Date Seen by Provider: Jun 06, 2020 Time Seen by Provider: 17:24 Initial Comments To ER with back pain all around the low back from the left side of the right side. It does not radiate down either leg. No loss of bowel or bladder control. No loss of sensation of genitals. No fevers or chills. No preceding trauma. No history of cancer. No IV drug use. This has been present for 3 months. Tylenol does not seem to work anymore. She denies any known cause. Changing positions from sitting to standing seems to exacerbate the pain. Once she gets comfortable in bed at night the pain goes away. She is currently on her menstrual period. She states they are irregular since having a baby in November. She saw [facility] 2 months ago and was given 2 injections which seemed to help temporarily with the pain. Location: Lumbar Spine, Paraspinous Muscles Timing/Duration: Other (3 months) Severity: Moderate Method of Injury: Unknown Modifying Factors: Worse With Movement Associated Symptoms: lower back pain Allergies and Home Medications Allergies Coded Allergies: No Known Drug Allergies (Unverified , 02/18/16) Home Medications Docusate Sodium 100 Mg Capsule, 100 MG PO BID PRN for CONSTIPATION-1ST LINE Prescribed by: RAJ PORTILLO on 12/18/19719 Hydrocodone/Acetaminophen 1 Each Tablet, 1-2 TAB PO Q6HR PRN for PAIN-MODERATE (5-7) Prescribed by: RAJ OPRTILLO on 12/18/19719 Ibuprofen 600 Mg Tablet, 600 MG PO Q6HR Prescribed by: RAJ PORTILLO on 12/18/19719 Vit No.124/Iron/FA 1 Each Tablet, 1 EACH PO DAILY, (Reported) Patient Home Medication List Home Medication List Reviewed: Yes Review of Systems Constitutional: see HPI; No chills, No fever EENTM: see HPI Respiratory: no symptoms reported Cardiovascular: no symptoms reported Genitourinary: no symptoms reported Musculoskeletal: see HPI, back pain Skin: no symptoms reported Psychiatric/Neurological: No Symptoms Reported Past [id number] Hx Patient Social History Recent Hopitalizations: No Immunizations Up To Date PED Vaccines UTD: Yes Date of Influenza Vaccine: Nov 22, 2019 Seasonal Allergies Seasonal Allergies: No Past Medical History Surgeries: Yes (c/s x2) Section Respiratory: No Currently Using CPAP: No Currently Using BIPAP: No Cardiac: No Neurological: Yes Reproductive Disorders: No Female Reproductive Disorders: Denies Sexually Transmitted Disease: No HIV/AIDS: No Genitourinary: No Gastrointestinal: No Musculoskeletal: No Endocrine: No HEENT: No Loss of Vision: Denies Hearing Impairment: Denies Cancer: No Psychosocial: No Integumentary: No Blood Disorders: No Adverse Reaction/Blood Tranf: No (N/A) Family Medical History Diabetes mellitus 19 FATHER 19 MOTHER Myocardial infarction 19 FATHER Heart Disease, Diabetes Physical Exam Vital Signs Capillary Refill : Height, Weight, BMI Height: 4'11.00" Weight: 209lbs. 5.0oz. [id number]; 35.03 BMI Method:Stated General Appearance: No Apparent Distress, WD/WN, Other ( alert and oriented no distress normal vital signs. There is absolutely no tenderness to palpation of the abdomen.) HEENT: PERRL/EOMI, TMs Normal Neck: Full Range of Motion, Normal Inspection Respiratory: Normal Breath Sounds, No Accessory Muscle Use, No Respiratory Distress Gastrointestinal: Normal Bowel Sounds, Non Tender, Soft Extremity: Normal Capillary Refill, Normal Inspection Neurologic/Psychiatric: Alert, Oriented x3 Skin: Normal Color, Warm/Dry Departure Impression Primary Impression: Low back pain Disposition: 01 HOME, SELF-CARE Condition: Stable Departure-Patient Inst. Decision time for Depature: 17:26 Referrals: [facility] (PCP/Family) Primary Care Physician Patient Instructions: Low Back Pain (DC) Add. Discharge Instructions: 1. Call [facility] on Tuesday to make an appointment to be seen. They may schedule you for an MRI of your back. Take the medication as directed in the meantime. Return to ER for any worsening. Scripts Methocarbamol (Robaxin-750) 750 Mg Tablet 1500 MG PO Q4H PRN for PAIN-MODERATE (5-7), #20 TAB Prov: KAILA BECERRIL APRN 06/06/20 Naproxen (Naprosyn) 500 Mg Tablet 500 MG PO BID PRN for PAIN-MODERATE (5-7), #30 TAB 0 Refills Prov: KAILA BECERRIL APRN 06/06/20 Work/School Note: Work Release Form Date Seen in the Emergency Department: Jun 06, 2020 Return to Work: Jun 08, 2020 KAILA BECERRIL APRN Jun 06, 2020 17:28
[2020-06-06 17:50] VITALS: BP 129/81
== END 2020-06-06 17:50 | disposition home or self-care (01) ==
LOC: EDUNIT# 17:11 → ER 17:14
DX: M54.5 Low back pain (principal)
CPT/HCPCS: 99281